=== PATIENT | male | born 1985 | race Caucasian/White ===

== ENCOUNTER 2020-03-16 16:27 | Emergency (ER) | payer OTHER, SELFPAY ==
[2020-03-16 16:35] VITALS: BP 129/81; PULSE 76; RESP 15; TEMP 36.8; O2SAT 98; BMI 22.4
[2020-03-16 17:58] LABS: Alanine Aminotransferase 17 IU/L (<50)
[2020-03-16 18:58] LABS: HIV 1 & 2 Ab/Ag 4th Gen Combo NEGATIVE (NEGATIVE); Hep C Virus Ab w/Reflex Quant NEGATIVE s/c (NEGATIVE)
--- NOTE | 2020-03-17 00:06 | ED.GENADULT ---
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 Patient reports patient has a known history of hepatitis C and previous drug user. Currently, source of expose's lab tests are being processed for HIV and HEP C. patient reports that he had washed out well his eyes after the exposure. Patient has up-to-date hepatitis B vaccination. In reviewing previous lab test, hep B antibody quantity 26 (>9) on 06/23/2018. Related Data Home Medications Medication Instructions Recorded Confirmed No Known Home Medications 03/17/20 03/17/20 Allergies Allergy/AdvReac Type Severity Reaction Status Date / Time No Known Drug Allergies Allergy Verified 03/17/20 00:11 Review of Systems <SHANNEN Burns - Last Filed: 03/17/20 00:28> Review of Systems Narrative: General: Denies fever, chills, fatigue, malaise, sweats. HEENT: Denies sinus pain, ear pain, sore throat, difficulty swallowing, dizziness. Respiratory: Denies dyspnea, cough, wheezing, hemoptysis, sputum. Cardiovascular: Denies chest pain, palpitations, orthopnea, edema. Gastrointestinal: Denies nausea, vomiting, abdominal pain, diarrhea, constipation, melena. : Denies dysuria, frequency, incontinence, hematuria, urinary retention. Musculoskeletal: Denies weakness, joint pain or bony pain. Skin: Denies rash, skin lesions, or other. Neurologic: Denies weakness, headache, numbness, change in speech, confusion, seizures, incoordination. Psychiatric: No concerning psychosocial issues. 12-point review of systems is negative except for those stated above. Patient History <SHANNEN Burns - Last Filed: 03/17/20 00:28> Surgical History No pertinent past surgical history (Acute) Social History Smoking Status: Never smoker Smoking Status: Never smoker alcohol intake frequency: holidays/special occasions only Substance Use Type: does not use Exam <SHANNEN Burns - Last Filed: 03/17/20 00:28> Narrative Exam Narrative: General appearance: well developed, well nourished, in no acute distress. Head: normocephalic, atraumatic, no scalp lesions, non-tender. ENT: Hearing grossly intact. Airway patent. Neck/Thyroid: neck supple, full range of motion, no visible masses or meningeal signs. No JVD, non-tender without lymphadenopathy. Skin: no suspicious rashes, lesions over visible areas. Warm and dry and appropriate color for ethnicity. Heart: no clubbing, no cyanosis, no edema. Lungs: Breathing even and unlabored. No stridor. No accessory muscles used. Able to speak in full sentences. Chest: normal shape and expansion. Abdomen: non-obese, non-distended. Neurologic: alert and oriented. Cognitive exam, [employer] and PNS grossly intact on informal exam. Psych: good eye contact, normal affect. Initial Vital Signs Initial Vital Signs: Vital Signs Temperature 98.2 F 03/16/20 16:35 Pulse Rate 76 03/16/20 16:35 Respiratory Rate 15 03/16/20 16:35 Blood Pressure 129/81 03/16/20 16:35 Pulse Oximetry 98 03/16/20 16:35 <Paresh Velarde DO - Last Filed: 03/17/20 07:09> Initial Vital Signs Initial Vital Signs: Vital Signs Temperature 98.2 F 03/16/20 16:35 Pulse Rate 76 03/16/20 16:35 Respiratory Rate 15 03/16/20 16:35 Blood Pressure 129/81 03/16/20 16:35 Pulse Oximetry 98 03/16/20 16:35 Scores <SHANNEN Burns - Last Filed: 03/17/20 00:28> GCS Mary coma scale eye opening: Spontaneous Mary coma scale verbal response: Orientated [place] coma scale motor response: Obey commands Mary coma scale total score: 15 Course <SHANNEN Burns - Last Filed: 03/17/20 00:28> Orders Ordered: ED Orders 03/16/20 17:30 Alanine Aminotransferase Stat HIV 1 & 2 Ab/Ag 4th Gen Combo Stat Hep C Virus Ab w/Reflex Quant Stat Vital Signs Vital signs: Vital Signs - 8 hr 03/16/20 16:35 Temperature 98.2 F Pulse Rate 76 Respiratory Rate 15 Blood Pressure 129/81 Pulse Oximetry 98 <Paresh Velarde DO - Last Filed: 03/17/20 07:09> Orders Ordered: ED Orders 03/16/20 17:30 Alanine Aminotransferase Stat HIV 1 & 2 Ab/Ag 4th Gen Combo Stat Hep C Virus Ab w/Reflex Quant Stat Vital Signs Vital signs: Vital Signs - 8 hr 03/16/20 16:35 Temperature 98.2 F Pulse Rate 76 Respiratory Rate 15 Blood Pressure 129/81 Pulse Oximetry 98 Medical Decision Making <Kranthi SalmeronSHANNEN Womack - Last Filed: 03/17/20 00:28> Differential Diagnosis Differential Diagnosis: Accidental exposure to blood pathogen Medical Records Medical records reviewed: Yes I reviewed the patient's medical records. Lab Data Lab results reviewed: Yes I reviewed the patient's lab results. 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 Patient reports rinse out thoroughly immediately after the exposure. Patient reports he has updated hepatitis-B vaccinations. Hepatitis be antibody quantity shows immunity of 26 on 06/23/2018. Hep C antibody is negative. HIV 1 and 2 antibodies test is negative. Hep Bs antibody is pending. Normal ALT of 17. Patient declined post exposure treatment at this time. Patient advised to follow-up with occupational health RN [facility] and provided contact phone number. Submitted post-exposure (red packet) to employee health. Patient verbalized understanding and agreement with the treatment plan. <DO Camille Guidry Last Filed: 03/17/20 07:09> Lab Data Labs: Lab Results 03/16/20 03/16/20 03/16/20 Range/Units 17:30 17:30 17:30 ALT 17 (<50) IU/L Hep Bs Antibody Reactive (.) Hepatitis C Antibody Negative (NEGATIVE) s/c HIV 1&2 Ab/P24 Ag 4thGn Negative (NEGATIVE) Discharge Plan Departure Patient Disposition: Home Clinical Impression: Exposure to blood-borne pathogen Discharge Date/Time: 03/16/20 17:43 Instructions: DI for Accidental Exposure to Body Fluids Activity Restrictions/Additional Instructions: You have been diagnosed with [accidental exposure to body fluids via mucous membrane-eye. Labs were drawn for baseline today. You declined post exposure medication therapy at this time.]. What to do: *Take your medications as directed. *[phone] and call for an appointment. Let them know you were seen in the ED and that we asked you to be seen in follow up. *Return to ED if you have any new, worsening, or concerning symptoms, such as [fever, malaise, jaundice, chest pain, breathing difficulty, unable to tolerate fluids, or any acute concerns]. Prescriptions: No Action No Known Home Medications RF: 0 Referrals: Melissa Aguirre DO [Primary Care Provider] - <Paresh Velarde DO - Last Filed: 03/17/20 07:09> Cosign ED Attending Cosdexterature Attestation: Dr Velarde Co-Sign Statement: I was available for consultation during this patient's emergency department visit. This chart is signed by myself for administrative purposes only. I did not have direct contact with this patient during this visit. They were seen independently by the APC.
[2020-03-17 06:33] LABS: Hepatitis B Surf Ab Qualitativ Reactive (.)
== END 2020-03-16 17:43 | disposition home or self-care (01) ==
PROVIDERS: Emergency Provider Nurse Practitioner Family; PCP Family Medicine
DX: Z77.21 Contact with and (suspected) exposure to potentially hazardous body fluids (principal); Y99.0 Civilian activity done for income or pay
CPT/HCPCS: 36415; 84460; 86706; 86803; 87389; 99283

== ENCOUNTER → 2020-04-21 | Outpatient (CLI) | payer OTHER, SELFPAY | PROVIDERS: PCP Family Medicine; Referring Provider Internal Medicine; Visit Provider Internal Medicine | DX: Z23 Encounter for immunization (principal) | CPT/HCPCS: 90471; 90686 ==

== ENCOUNTER → 2020-06-15 10:27 | Outpatient (CLI) | payer OTHER, SELFPAY ==
[2020-06-15] MEDS: COVID-19 VACC(MODERNA-1)/PF 100 MCG/0.5 ML VIAL IM (10:31)
== END ==
PROVIDERS: PCP Family Medicine; Visit Provider Internal Medicine
DX: Z23 Encounter for immunization (principal)
CPT/HCPCS: 0011A; 91301

== ENCOUNTER → 2020-07-12 10:33 | Outpatient (CLI) | payer OTHER, SELFPAY ==
[2020-07-12] MEDS: COVID-19 VACC #2, MRNA(MOD) 100 MCG/0.5 ML VIAL IM (10:38)
== END ==
PROVIDERS: PCP Family Medicine; Visit Provider Internal Medicine
DX: Z23 Encounter for immunization (principal)
CPT/HCPCS: 0012A; 91301

== ENCOUNTER → 2021-04-21 08:41 | Outpatient (CLI) | payer OTHER, SELFPAY ==
[2021-04-21] MEDS: COVID-19 VACC #3, MRNA(MOD) 50 MCG/0.25 ML VIAL IM (08:47)
== END ==
PROVIDERS: PCP Family Medicine; Visit Provider Internal Medicine
DX: Z23 Encounter for immunization (principal)
CPT/HCPCS: 0013A; 91301

== ENCOUNTER → 2021-05-11 06:54 | Outpatient (CLI) | payer OTHER, SELFPAY | PROVIDERS: PCP Family Medicine; Referring Provider Internal Medicine; Visit Provider Internal Medicine | DX: Z23 Encounter for immunization (principal) | CPT/HCPCS: 90471; 90686 ==

== ENCOUNTER → 2022-03-23 12:43 | Outpatient (CLI) | payer OTHER, SELFPAY | PROVIDERS: PCP Family Medicine; Referring Provider Internal Medicine; Visit Provider Internal Medicine | DX: Z23 Encounter for immunization (principal) | CPT/HCPCS: 90471; 90686 ==